=== PATIENT | female | born 1950 | race Caucasian/White ===

== ENCOUNTER 2019-03-27 07:21 | Emergency (ER) | payer MEDICARE, SELFPAY ==
[2019-03-27 07:22] VITALS: BP 142/89; PULSE 79; RESP 28; TEMP 37.3; O2SAT 92; BMI 30.4
[2019-03-27 07:38] VITALS: BP 154/84; PULSE 77; RESP 20; TEMP 37.2; O2SAT 92
--- NOTE | 2019-03-27 07:41 | EKG12_ITS ---
Test Reason : SOB Blood Pressure : / mmHG Vent. Rate : 083 BPM Atrial Rate : 083 BPM P-R Int : 190 ms QRS Dur : 082 ms QT Int : 374 ms P-R-T Axes : 068 024 084 degrees QTc Int : 439 ms Normal sinus rhythm Low Voltage QRS (Limb Leads) Confirmed by MINDY WALKER, ROMAN ([id number]), proposal editor CAMILLE MYERS ([id number]) on 03/29/2019 2:15:53 PM Referred By: CK Confirmed By:ROMAN GUILLEN MD
--- NOTE | 2019-03-27 07:41 | RAD_ITS ---
STUDY: X-RAY CHEST REASON FOR EXAM: Female, 68 years old. 2 day history of cough and shortness of breath. TECHNIQUE: PA and lateral views of the chest. COMPARISON: None. FINDINGS: Hyperinflation. Minimal increased interstitial markings at the lung bases. This is suggestive of mild linear atelectasis and/or scarring. There is no demonstrated pleural abnormality. Normal size heart. Normal mediastinum and boris. Normal visualized pulmonary arteries. Normal visualized aortic arch and descending thoracic aorta. There are diffuse degenerative changes of the visualized thoracic spine. Normal visualized ribs, clavicles, and shoulders. There is no demonstrated abnormality of the visualized soft tissue structures of the upper abdomen. RAD/Chest PA and Lateral IMPRESSION: Mild increased linear markings at the lung bases suggestive of bleeding atelectasis and/or scarring. Electronically Signed: Tim Arredondo, at 8:36 EDT , Service support ,
--- NOTE | 2019-03-27 07:41 | ED.VISSUMM ---
- ER Visit Summary Date of Service: 03/27/19 Chief Complaint: Shortness of breath, cough History of Present Illness: The patient is a 68 F who presents with shortness of breath and cough. This is been ongoing for 2 days. She states that she started with a cough that was productive of yellowish sputum. Throughout the day yesterday she became more short of breath. Feels like she cannot get a deep breath in. She has had rhinorrhea. She states that her ribs are sore from coughing. She tried DayQuil without any relief. She denies any chest pain. No history of any cardiac issues in the past. Physical Examination: Vital signs reviewed. HEENT exam unremarkable. Heart is regular rate and rhythm without murmurs. Lungs do have slight wheezes in the left lower lung base. Abdomen is soft and nontender. Extremities reveal no edema. Skin exam normal. Neurologic exam normal. Test Results: EKG is a sinus rhythm with rate of 83. No ST changes. Laboratory studies normal except for a white blood cell count of 12.8. Troponin normal. Chest x-ray shows some chronic changes and scarring. CTA of the chest shows no evidence of PE and is otherwise normal Emergency Department Course and Treatment: Patient was given albuterol. She did have a transient episode of a pulse ox in the high 80s. When I reevaluated her she was 94% on room air. She has no evidence of pneumonia. She has no PE. I feel like she likely has a bronchitis causing the symptoms. I will give her prednisone and azithromycin for home. I will also give her an albuterol inhaler. She will follow-up with her PCP. Treatment Plan: [] Disposition: Discharge Impression: Bronchitis This note was generated with [employer] dictation software. It may contain incorrect words, spelling, and punctuation that were not noted in review of the chart prior to signing ED Disposition - Plan for ED Patient: Referrals: Jose Maria Sawyer DO [Primary Care Provider] -
[2019-03-27 07:44] VITALS: O2SAT 91
[2019-03-27 07:50] VITALS: PULSE 88; RESP 18; O2SAT 93
[2019-03-27 07:56] LABS: Absolute Lymphocyte Count 1.01 X10^3/uL (0.83-4.51); Absolute Neutrophil Count 10.2 X10^3/uL (2.0-7.7); Basophil# 0.02 X10^3/uL; Basophil% 0.2 % (0-1); Eosinophil# 0.26 X10^3/uL; Hematocrit 42.3 % (37-47); Hemoglobin 14.1 g/dL (12.0-15.0); Lymphocyte # 1.01 X10^3/ul (4.0); Lymphocyte % 7.9 % (19-41); Mean Corp Hgb Conc 33.3 g/dL (32-36); Mean Platelet Vol. 9.1 fl (6.2-12.0); Monocyte# 1.26 X10^3/uL; Monocyte% 9.8 % (0-10); NRBC Flagged by Analyzer 0 % (0-5); Neutrophil # 10.21 X10^3/uL (2.7-7.7); Neutrophil % 79.8 % (47-70); Platelet Count 253 K/mm3 (150-450); RBC Distribution Width CV 12.9 % (11.6-14.6); RBC Distribution Width SD 42.8 fl (35.1-43.9); White Blood Count 12.8 K/mm3 (4.4-11.0)
[2019-03-27] MEDS: Albuterol 2.5 MG/3 ML VIAL.NEB. INHALATION (08:00)
[2019-03-27 08:10] LABS: Anion Gap 10 (5-15); BUN 16 mg/dL (7-18); BUN/Creat Ratio 15.7 RATIO (10-20); Chloride 106 mmol/L (98-107); Creatinine, Serum 1.02 mg/dL (0.55-1.02); EST Glomerular Filtration Rate 57 mL/min (>60); Est Glom Filt Rate - Afr Amer 69 mL/min (>60); Estimated Creatinine Clearance 49.42 ml/min; Glucose 243 mg/dL (74-106); Potassium 3.7 mmol/L (3.5-5.1); Sodium Level 142 mmol/L (136-145)
--- NOTE | 2019-03-27 08:38 | CT_ITS ---
STUDY: CTA CHEST REASON FOR EXAM: Female, 68 years old. Shortness of breath, cough RADIATION DOSAGE (If Supplied By Facility): CTDIvol = ( 12.28 ) mGy, DLP = ( 507.93 ) mGycm TECHNIQUE: The examination was performed with the intravenous administration of 100mL IV Isovue 370. Post-processing of the angiographic images was performed, with multiplanar reformation and 3D reconstruction. Individualized dose optimization techniques were used for this CT. COMPARISON: None. FINDINGS: Normal enhancement of the main pulmonary artery and right and left pulmonary arteries. Normal enhancement of the bilateral peripheral pulmonary arteries. There is no demonstrated pulmonary embolism. Normal thoracic aorta and visualized great vessels. There is no demonstrated aortic dissection. Normal heart and pericardium. Normal mediastinum. Normal hilar regions. Normal visualized trachea and bronchi. The lungs are well expanded. Normal pulmonary parenchyma. Normal pleura. Normal chest wall structures. Normal osseous structures. Normal visualized upper abdomen. CT/CTA Chest W/WO Contrast IMPRESSION: Normal CTA chest examination, without a demonstrated pulmonary embolism or arterial dissection. Electronically Signed: Aravind Galeano MD at 9:45 EDT Tel , Service support ,
[2019-03-27 08:40] VITALS: BP 142/86; PULSE 81; RESP 20; TEMP 37.2; O2SAT 87; O2SAT 93
--- NOTE | 2019-03-27 09:59 | ED.DEP ---
ED Disposition - Plan for ED Patient: Disposition: Home or Assisted Living Instructions: BRONCHITIS, Antiobiotic Treatment (Adult) Prescriptions: Prednisone [Deltasone] 40 mg PO DAILY #8 tab Transmission Status: Pending to [facility] Albuterol Inhaler [Ventolin Hfa] 1 - 2 puff INHALATION Q4H PRN PRN #1 inhaler PRN Reason: Wheezing Transmission Status: Pending to [facility] Azithromycin [Zithromax] 250 mg PO DAILY #4 tab Transmission Status: Pending to [facility] Referrals: Jose Maria Sawyer DO [Primary Care Provider] - Additional Instructions: Your prescriptions were electronically transferred to [facility] in [place]
[2019-03-27] MEDS: predniSONE 20 MG Tablet 40 MG PO (10:06)
[2019-03-27] MEDS: Azithromycin 250 MG Tablet 500 MG PO (10:06)
[2019-03-27 10:09] VITALS: BP 135/85; PULSE 72; RESP 15; O2SAT 98
== END 2019-03-27 10:11 | disposition home or self-care (01) ==
PROVIDERS: Emergency Provider Emergency Medicine; Family Provider Student in an Organized Health Care Education/Training Program; PCP Student in an Organized Health Care Education/Training Program
DX: J40 Bronchitis, not specified as acute or chronic (principal)
CPT/HCPCS: 71046; 71275; 80048; 84484; 85025; 93005; 94640; 99285; Q9967; A4216